=== PATIENT | male | born 2000 | race Caucasian/White ===

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

== ENCOUNTER 2022-12-12 12:45 | Outpatient (CLI) | payer SELFPAY ==
--- NOTE | ~2022-12-12 | XR_ITS ---
EXAMINATION: XR finger 5th RT min 2V DATE: 12/12/2022 13:06 INDICATION: Injury to the right fifth digit TECHNIQUE: Dorsal palmar, lateral and 2 oblique views of the right fifth digit were obtained COMPARISON: Right hand radiographs dated 10/05/2019 FINDINGS: Alignment is normal. No fracture. Joint spaces are normal. No erosions. Soft tissues are unremarkable . IMPRESSION: 1. Negative right fifth digit radiographs. Reviewed, dictated and finalized at location A.
== END 2022-12-12 12:46 | disposition home or self-care (01) ==
PROVIDERS: PCP Internal Medicine; Visit Provider Internal Medicine
DX: S69.91XA Unspecified injury of right wrist, hand and finger(s), initial encounter (principal)
CPT/HCPCS: 73140

== ENCOUNTER 2025-04-25 18:01 | Emergency (ER) | payer OTHER, SELFPAY ==
--- NOTE | ~2025-04-25 | XR_ITS ---
Examination: XR chest 2V Clinical History: tachycardia, shortness of breath Comparison: None Technique: PA and Lateral Findings: Cardiomediastinal silhouette normal size and configuration. Lungs clear. No acute bony abnormality. IMPRESSION: 1. No acute cardiopulmonary findings. Reviewed, dictated and finalized at location [facility]
[2025-04-25 18:04] VITALS: BP 128/70; PULSE 99; RESP 16; TEMP 36.6; O2SAT 99
--- NOTE | 2025-04-25 20:02 | ECG_ITS ---
Test Date: 2025-04-25 22:01:43 Measurements Intervals [place]dock Rate: 121 P: 74 GA: 150 QRS: 99 QRSD: 86 T: 62 QT: 325 QTc: 463 Interpretive Statements SINUS TACHYCARDIA RIGHT AXIS DEVIATION DELAYED PRECORDIAL R/S TRANSITION MINIMAL Q WAVES- INFERIOR LEADS BASELINE ARTIFACT- I, II, III, AVR, AVL, AVF ABNORMAL ECG No previous ECG available for comparison Electronically Signed On 04-26-2025 08:22:06 DEAN OF ADMISSIONS by Kevin Ruano D.O.
--- NOTE | 2025-04-25 20:04 | ED_ITS ---
HPI - Abdominal Pain General Chief Complaint: Abdominal Pain Stated Complaint: I'm really sick Time Seen by Provider: 04/25/25 19:51 History of Present Illness HPI narrative: Patient is a 24-year-old male who presents to the ER with a 3 day history of abdominal pain and emesis. He reports he has been unable to keep liquid or food down without vomiting. Patient denies nausea at time of examination, as his stomach is empty. He also endorses intermittent shortness of breath. Patient denies any urinary symptoms, chest pain, or recent fevers. He reports he was around his grandparents recently and they have both been sick. Patient denies any recent alcohol use but does endorse daily marijuana use. He reports he has been unable to smoke marijuana in 4 days. Patient reports his last bowel movement was yesterday and it was normal for him. He endorses a history of asthma and bilateral knee surgery. Related Data Allergies Allergy/AdvReac Type Severity Reaction Status Date / Time ondansetron (From Zofran) Allergy Fatigued Verified 04/25/25 18:07 Review of Systems 2 Review of Systems: All systems reviewed & are unremarkable except as noted in HPI and below Exam 2 Narrative: GENERAL: Well appearing, malnourished, non-toxic, in no acute distress. HEAD: Normocephalic, atraumatic. NECK: Supple. No adenopathy, no masses. RESPIRATORY: Airway patent, respirations nonlabored. Clear to auscultation bilaterally, no rales, rhonchi, wheezing. CARDIOVASCULAR: Regular rate and rhythm without murmurs, rubs, or gallops. Peripheral pulses 2+ and equal bilaterally. ABDOMINAL: Soft, nontender, nondistended. Normoactive BS. MUSCULOSKELETAL: Moves all extremities. Strength/ROM intact without gross deformities. SKIN: Warm, dry, normal color. No rashes. NEURO: A&O X3. Speech clear. Cranial nerves II-XII intact. No ataxic movements. PSYCHIATRIC: Appropriate mood and affect. Normal interaction. Course Vital Signs Vital signs: Vital Signs Temperature 36.6 C 04/25/25 18:04 Pulse Rate 99 04/25/25 18:04 Respiratory Rate 16 04/25/25 18:04 Blood Pressure 128/70 04/25/25 18:04 Pulse Oximetry 99 04/25/25 18:04 Oxygen Delivery Room Air 04/25/25 18:04 Temperature 36.6 C 04/25/25 18:04 Pulse Rate 90 04/25/25 22:45 Respiratory Rate 16 04/25/25 22:45 Blood Pressure 123/73 04/25/25 22:45 Pulse Oximetry 100 04/25/25 22:45 Oxygen Delivery Room Air 04/25/25 18:04 MDM MDM Narrative Medical decision making narrative: Patient is a 24-year-old male who presents to the ER with a 3 day history of abdominal pain and emesis. He reports he has been unable to keep liquid or food down without vomiting. Patient denies nausea at time of examination, as his stomach is empty. He also endorses intermittent shortness of breath. Patient denies any urinary symptoms, chest pain, or recent fevers. He reports he was around his grandparents recently and they have both been sick. Patient denies any recent alcohol use but does endorse daily marijuana use. He reports he has been unable to smoke marijuana in 4 days. Patient reports his last bowel movement was yesterday and it was normal for him. He endorses a history of asthma and bilateral knee surgery. Labs Ordered: CBC, CMP, COVID/flu/RSV, lipase, UA Imaging Ordered: Chest x-ray Medications Ordered: 1 L normal saline IV bolus, Bentyl p.o., Reglan p.o. Results: Patient's chest x-ray indicates no consolidation, pneumothorax or significant pleural effusion. The cardiac silhouette is within normal limits. No fracture. No incidental findings. Diagnosis: Cannabinoid hyperemesis syndrome Patient Education/Shared MDM: Results of lab work shared with patient. He endorses mild improvement of symptoms following IV fluid administration. Patient was given a dose of Bentyl and Reglan here in the ER. He was able to keep down a bottle of water. Since patient was able to keep down his p.o. intake, he does not need his full 2nd bag of IV fluids. Extensive education provided to patient regarding side effects of marijuana use. Patient strongly advised to maintain hydration status upon discharge and follow-up with his PCP as soon as possible for further evaluation. He will be discharged home with a prescription for Reglan PO, Bentyl PO, and capsaicin lotion. Strict return precautions provided. Patient verbalized understanding and is in agreement with plan. Vital signs stable at time of discharge. All questions answered. Differential Diagnosis Differential Diagnosis: Urinary tract infection, gastroenteritis, drug induced nausea/vomiting, COVID, influenza Lab Data MDM Lab Attestation statement: I personally reviewed the patient's lab results. 04/25/25 22:10 04/25/25 22:10 Labs: Lab Results 04/25/25 04/25/25 04/25/25 Range/Units 22:10 22:37 23:47 WBC 9.2 (4.5-10.0) K/mm3 RBC 4.97 (4.6-6.20) M/mm3 Hgb 15.8 (14.0-18.0) g/dL Hct 45.1 (42.0-52.0) % MCV 90.7 (80-100) fl MCH 31.8 (26-34) pg MCHC 35.0 (32-36) g/dl RDW 12.3 (11.5-14.5) % Plt Count 297 (150-375) k/mm3 MPV 9.3 (7.4-10.4) fl Immature Gran % (Auto) 0.4 (0-0.5) % Neut % (Auto) 71.1 (45.5-73.1) % Lymph % (Auto) 19.2 (18.3-44.2) % [place]ies % (Auto) 8.9 H (2.6-8.5) % Eos % (Auto) 0.0 (0-4.4) % Baso % (Auto) 0.4 (0.2-1.2) % Lymph # (Auto) 1.77 (0.9-3.2) K/mm3 [place]ies # (Auto) 0.8 H (0.1-0.6) K/mm3 Eos # (Auto) 0.0 (0-0.3) K/mm3 Baso # (Auto) 0.0 (0.0-0.1) K/mm3 Abs Immat Gran (auto) 0.04 H (0.00-0.031) K/mm3 Absolute Neuts (auto) 6.5 (1.3-6.7) K/mm3 Absolute Nucleated RBC 0.000 (0.0-0.012) K/mm3 Nucleated RBC % 0.0 (0.0-0.2) % Sodium 137 (137-145) mmol/L Potassium 3.6 (3.4-5.0) mmol/L Chloride 101 (98-107) mmol/L Carbon Dioxide 17 L (22-30) mmol/L Anion Gap 19 H (4-12) mmol/L BUN 17 (9-20) mg/dL Creatinine 0.99 (0.7-1.3) mg/dL Estim Creat Clear Calc 95 ml/min Estimated GFR > 60 (59 - ) Glucose 82 (65-110) mg/dL Calcium 10.1 (8.4-10.2) mg/dL Total Bilirubin 1.3 (0.2-1.3) mg/dL AST 30 (17-59) U/L ALT 23 (6-50) U/L Alkaline Phosphatase 80 (38-126) U/L Total Protein 9.0 H (6.3-8.2) g/dL Albumin 5.3 H (3.5-5.1) g/dL Lipase 84 (23-300) U/L Urine Color Yellow (Yellow) Urine Appearance Clear (Clear) Urine pH 5.0 (5.0-9.0) Ur Specific [place] 1.031 (1.001-1.035) Urine Protein 1+ H (Negative) mg/dL Urine Glucose (UA) Negative (Negative) mg/dL Urine Ketones 4+ H (Negative) mg/dL Ur Blood (Man) Negative (Negative) Urine Nitrate Negative (Negative) Urine Bilirubin Negative (Negative) Urine Urobilinogen 0.2 (<2.0) mg/dL Leukocyte Esterase Rfl Negative (Negative) JACIEL/UL Urine RBC 0-2 (0-2) /hpf Urine WBC 0-5 (0-3) /hpf Ur Squamous Epith Cells None seen (Few) /hpf Urine Bacteria None seen /hpf Urine Casts 0-2 Urine Opiates Screen Negative (Negative) Urine Methadone Screen Negative (Negative) Ur Barbiturates Screen Negative (Negative) Ur Phencyclidine Scrn Negative (Negative) Ur Amphetamine Screen Negative (Negative) U Benzodiazepines Scrn Negative (Negative) Urine Cocaine Screen Negative (Negative) U Cannabinoids Screen Positive A (Negative) Influenza A (RT-PCR) Negative (Negative) Influenza B (RT-PCR) Negative (Negative) RSV (RT-PCR) Negative (Negative) SARS-CoV-2 RNA (RT-PCR) Negative (Negative) Imaging Data Attestation: I personally reviewed and interpreted this imaging study as follows: Radiologist's impression: Patient's chest x-ray indicates no acute abdomen abnormalities. Discharge Plan Discharge Clinical Impression: Cannabinoid hyperemesis syndrome, Acute dehydration Patient Disposition: Home Condition: Stable Instructions: Antibiotic Form, Cannabis Use Disorder (ED) Additional Instructions: Please return to the ER with any worsening symptoms. Follow-up with primary care provider as soon as possible for further evaluation. If you start to experience symptoms again, please take a hot shower, apply capsaicin lotion to your abdomen, and take Reglan for nausea. Please take Bentyl as needed for abdominal discomfort. Remember to drink lots of water and fluids. Patient Language: Yi Prescriptions: New capsaicin 0.1 % cream 1 applic topical TID Qty: 56.6 0RF Rx Instructions: do not wash area for at least 30 min after application dicyclomine 10 mg capsule 10 mg PO TID Qty: 30 0RF metoclopramide HCl [Reglan] 10 mg tablet 10 mg PO Q6H PRN (Reason: nausea and vomiting) Qty: 30 0RF No Action hydrocodone-acetaminophen [[place]] 5-325 mg tablet 1 tablet PO Q8H PRN (Reason: pain, moderate) Qty: 10 0RF (DME) crutch accessories Misc See Rx Instructions .ROUTE .MEDSUPPLY Qty: 2 0RF Rx Instructions: As directed hydrocodone-acetaminophen [[place]] 7.5-325 mg tablet 1 tablet PO Q8H PRN (Reason: pain) Qty: 30 0RF Follow-up/Referrals: Britton Mcfadden MD [Primary Care Provider, Internal Medicine] Stand Alone Forms: Work/School Release IP Time of Disposition: 01:35
[2025-04-25 22:15] LABS: Hematocrit 45.1 % (42.0-52.0); Hemoglobin 15.8 g/dL (14.0-18.0); Immature Granulocyte Percent A 0.4 % (0-0.5); Lymphocytes Absolute Auto 1.77 K/mm3 (0.9-3.2); Mean Corpuscular HGB Conc 35.0 g/dl (32-36); Mean Corpuscular Hemoglobin 31.8 pg (26-34); Mean Corpuscular Volume 90.7 fl (80-100); Nucleated Red Blood Cells Absolute Auto 0.000 K/mm3 (0.0-0.012); Nucleated Red Blood Cells Perc 0.0 % (0.0-0.2); Platelet Count Result 297 k/mm3 (150-375); Red Blood Count 4.97 M/mm3 (4.6-6.20); White Blood Count 9.2 K/mm3 (4.5-10.0)
[2025-04-25] MEDS: SODIUM CHLORIDE 0.9% IV 1,000 ML 999 ML IV CONT (22:34)
[2025-04-25 22:35] LABS: Alanine Aminotransferase 23 U/L (6-50); Albumin Level 5.3 g/dL (3.5-5.1); Alkaline Phosphatase 80 U/L (38-126); Anion Gap 19 mmol/L (4-12); Aspartate Amino Transferase 30 U/L (17-59); Bilirubin,Total 1.3 mg/dL (0.2-1.3); Blood Urea Nitrogen 17 mg/dL (9-20); Calcium 10.1 mg/dL (8.4-10.2); Carbon Dioxide 17 mmol/L (22-30); Chloride 101 mmol/L (98-107); Estimated CRCL calculation 95 ml/min; Estimated Glomerular Filt Rate > 60; Glucose 82 mg/dL (65-110); Lipase 84 U/L (23-300); Potassium 3.6 mmol/L (3.4-5.0); Sodium 137 mmol/L (137-145); Total Protein 9.0 g/dL (6.3-8.2)
[2025-04-25 22:45] VITALS: BP 123/73; PULSE 90; RESP 16; O2SAT 100
[2025-04-25 23:19] LABS: Influenza A QL RT-PCR Negative (Negative); Influenza B QL RT-PCR Negative (Negative); RSV RNA, RT-PCR Negative (Negative); SARS-CoV-2 RNA PCR Negative (Negative)
[2025-04-26] LABS: Add Urine Microscopic? YES; Appearance Urine Clear (Clear); Glucose Urine UA Negative (Negative); Leukocyte Esterase Ur Negative LEU/UL (Negative); Nitrate Urine Negative (Negative); Non Pathogenic Casts 0-2; Specific Grav Ur 1.031 (1.001-1.035)
[2025-04-26 00:20] LABS: Cannabinoid Screen Urine Positive (Negative)
[2025-04-26] MEDS: DICYCLOMINE HCL 10 MG CAPSULE 20 MG PO (01:20)
[2025-04-26] MEDS: SODIUM CHLORIDE 0.9% IV 1,000 ML 999 ML IV CONT (01:20)
[2025-04-26] MEDS: METOCLOPRAMIDE HCL 10 MG TABLET PO (01:20)
[2025-04-26 02:38] VITALS: BP 120/76; PULSE 82; RESP 17; TEMP 36.4; O2SAT 99
[2025-04-26 02:40] VITALS: BP 120/76; PULSE 82; RESP 17; TEMP 36.4; O2SAT 99
== END 2025-04-26 02:42 | disposition home or self-care (01) ==
PROVIDERS: Emergency Provider Registered Nurse; PCP Internal Medicine
DX: R11.16 Cannabis hyperemesis syndrome (principal); E86.0 Dehydration; Z20.822 Contact with and (suspected) exposure to COVID-19
CPT/HCPCS: 36415; 71046; 80053; 80307; 81001; 83690; 85025; 87637; 93005; 96360; 99284; A9270; J7030